=== PATIENT | male | born 2000 | race Caucasian/White ===

== ENCOUNTER 2020-06-04 23:19 | Emergency (ER) | payer MEDICAID, SELFPAY ==
[2020-06-04 23:22] VITALS: BP 152/78; PULSE 95; RESP 20; TEMP 36.4; O2SAT 98
[2020-06-04 23:28] VITALS: PULSE 95
--- NOTE | 2020-06-04 23:34 | ECG_ITS ---
Measurements Intervals [place] Rate: 92 P: 58 CT: 149 QRS: 83 QRSD: 118 T: 35 QT: 340 QTc: 422 Interpretive Statements SINUS RHYTHM POSSIBLE LEFT ATRIAL ENLARGEMENT RIGHT BUNDLE BRANCH BLOCK BASELINE ARTIFACT- I, II, III BORDERLINE ECG Electronically Signed On 06-05-2020 7:47:03 CDT by Ty Powers D.O.
--- NOTE | 2020-06-05 00:25 | ED.CHESTPAIN ---
HPI - Chest Pain General Chief Complaint: Chest Pain Stated Complaint: chest pain Source: patient and other (girlfriend) Mode of arrival: EMS History of Present Illness HPI narrative: 20 y.o. was smoking a cigarette, thinking about his responsibilities and lack of employment when he started feeling his heart racing and broke out in a sweat followed by discomfort in his left anterior chest, feeling like he was going to faint and being very anxious. The symptoms were so intense he thought he was going to . He saw black, then dropped to his knees. EMS was contacted and pt. transported to the E.. He has associated anterior neck discomfort made worse with deep inspiration. The total duration before arriving was approximately 25 - 30 minutes. Palpitations continued after arrival. He has a hx of recurrent episodes suddenly having palpitations, anxiety and panic starting 3 years ago. They have never been this intense, usually lasting just a few minutes. Seven days ago he fractured his left elbow which required ORIF. He wears a splint for this. Related Data Home Medications Medication Instructions Recorded Confirmed meloxicam 7.5 mg PO DAILY 06/04/20 06/04/20 tramadol 50 mg PO Q4H PRN 06/04/20 06/04/20 Allergies Allergy/AdvReac Type Severity Reaction Status Date / Time No Known Allergies Allergy Verified 06/04/20 23:32 Review of Systems Review of Systems: Narrative: Constitutional: Constitutional: Denies chills and Denies fever(s) ENT: Denies sore throat Respiratory: Respiratory: Reports no additional respiratory complaints Gastrointestinal: Gastrointestinal: Denies heartburn and Denies vomiting Musculoskeletal: Musculoskeletal: Denies back pain [facility] Past Medical History Medical History (Updated 06/05/20 @ 01:56 by Trey Duran MD) Fibromyalgia Kidney stones Migraine Social History Social History (Updated 06/05/20 @ 00:28 by Trey Duran MD) Smoking status: Current every day smoker Exam Const: Other: Laying at 70 degrees, cloth covering his upper face, mask on. (Pt stated the light bothered his eyes). Complaining of heart racing, telemetry shows normal sinus rhythm, rate <100. Respirations not labored or increased. HENMT: Head: normal to inspection Eyes: Other: no photophobia. Neck: Neck: no lymphadenopathy Chest: Chest palpation & inspection: normal inspection of the chest and tenderness (left medial chest, exacerbating his already present chest discomfort. ) Resp: Auscultation: clear to auscultation bilaterally Cardio: Rate: regular rate Rhythm: regular rhythm Heart sounds: no murmurs GI: Other: flat, soft and nontender : General: Yes no CVA tenderness Skin: General skin exam: normal color Other: warm and dry Neuro: General: patient oriented x3 Extrem: General: no pedal edema Psych: Affect: Anxious affect present Thought content: Yes Normal thought content present Course Course Emergency Course: Within 15 mnutes of arrival his symptoms were gone. He no longer had chest wall tenderness. Labs and other test results reviewed with patient. Dx. of panic attack discussed. Pt encouraged got get a PCP to discuss his anxiety, panic attacks and RBBB. Vital Signs Vital signs: Vital Signs Temperature 36.4 C L 06/04/20 23:22 Pulse Rate 95 06/04/20 23:22 Respiratory Rate 20 06/04/20 23:22 Blood Pressure 152/78 H 06/04/20 23:22 Pulse Oximetry 98 06/04/20 23:22 Temperature 36.6 C 06/05/20 01:45 Pulse Rate 89 06/05/20 01:45 Respiratory Rate 18 06/05/20 01:45 Blood Pressure 130/76 06/05/20 01:45 Pulse Oximetry 99 06/05/20 01:45 MDM - Chest Pain Differential Diagnosis Differential diagnosis: Likely costochondritis and other (ACS, GA, chest wall pain, GERD, panic attack) Lab Data Attestation: I reviewed the patient's lab results. Result diagrams: 06/05/20 00:49 06/05/20 00:49 Labs: Lab Results
[2020-06-05 00:33] VITALS: BP 141/70; PULSE 77; RESP 18; O2SAT 98
[2020-06-05 01:00] LABS: Basophils Absolute Auto 0.03 K/mm3 (0.00-0.10); Basophils Percent Auto 0.2 % (0.0-1.0); Eosinophils Absolute Auto 0.06 K/mm3 (0.02-0.50); Eosinophils Percent Auto 0.5 % (1.0-6.0); Hematocrit 42.5 % (40.0-54.0); Hemoglobin 14.1 g/dL (14.0-18.0); Immature Granulocyte Absolute 0.12 K/mm3 (0.00-0.00); Lymphocytes Absolute Auto 1.57 K/mm3 (1.10-4.50); Lymphocytes Percent Auto 12.7 % (18.0-42.0); Mean Corpuscular HGB Conc 33.2 g/dL (32.0-36.0); Mean Corpuscular Hemoglobin 30.5 pg (27.0-31.0); Mean Platelet Volume 9.8 fl (8.7-11.0); Monocytes Absolute Auto 1.14 K/mm3 (0.10-0.90); Monocytes Percent Auto 9.2 % (2.0-11.0); Neutrophils Absolute Auto 9.5 K/mm3 (1.7-7.2); Neutrophils Percent Auto 76.4 % (50.0-70.0); Platelet Count Result 248 K/mm3 (150-420); Red Blood Count 4.62 M/mm3 (4.70-6.10); Red Cell Distribution Width 12.7 % (11.6-14.4); White Blood Count 12.4 K/mm3 (4.8-10.8)
[2020-06-05 01:24] LABS: Amphetamine Screen Urine Negative (Negative); Barbiturate Screen Urine Negative (Negative); Benzodiazepines Screen Urine Negative (Negative); Cannabinoid Screen Urine Positive (Negative); Cocaine Screen Urine Negative (Negative); Methadone Screen Urine Negative (Negative); Opiate Screen Urine Positive (Negative); Phencyclidine Screen Urine Negative (Negative)
[2020-06-05 01:28] LABS: Appearance Urine Clear (Clear); Bilirubin Urine Negative (Negative); Blood Urine Negative (Negative); Color Urine Yellow (Yellow); Glucose Urine UA Negative (Negative); Ketones Urine Trace (Negative); Leukocyte Esterase Ur Negative LEU/UL (Negative); Nitrate Urine Negative (Negative); Protein Urine Negative (Negative)
[2020-06-05 01:30] LABS: Add Urine Microscopic? NO
[2020-06-05 01:33] LABS: Alanine Aminotransferase 37 U/L (16-63); Albumin Level 3.8 g/dL (3.4-5.0); Alkaline Phosphatase 63 U/L (46-116); Anion Gap 9.7 mmol/L (7-16); Aspartate Amino Transferase 25 U/L (15-37); Bilirubin,Total 0.2 mg/dL (0.00-1.00); Blood Urea Nitrogen 16 mg/dL (7-18); Carbon Dioxide 29 mmol/L (21-32); Chloride 104 mmol/L (98-108); Estimated CRCL calculation 106 ml/min; Estimated Glomerular Filt Rate > 60; Glucose 105 mg/dL (70-99); Osmolality Calculated 289 mOsm/kg (285-295); Potassium 3.7 mmol/L (3.5-5.1); Sodium 139 mmol/L (136-145); Total Protein 7.3 g/dL (6.4-8.2)
[2020-06-05 01:34] LABS: Troponin I < 0.02 ng/mL (0.00-0.056)
[2020-06-05 01:45] VITALS: BP 130/76; PULSE 89; RESP 18; TEMP 36.6; O2SAT 99
== END 2020-06-05 02:00 | disposition home or self-care (01) ==
PROVIDERS: Emergency Provider Family Medicine
DX: F41.0 Panic disorder [episodic paroxysmal anxiety] (principal); I45.10 Unspecified right bundle-branch block
CPT/HCPCS: 36415; 80053; 80307; 81003; 84484; 85025; 93005; 99283; 99284

== ENCOUNTER 2020-06-25 21:05 | Emergency (ER) | payer MEDICAID, SELFPAY ==
--- NOTE | ~2020-06-25 | XR_ITS ---
EXAMINATION: XR chest 2V DATE: 06/25/2020 21:57 INDICATION: Chest pain TECHNIQUE: PA and lateral views of the chest were obtained. COMPARISON: None FINDINGS: The lungs are clear with no focal airspace opacities, pulmonary edema, pleural effusion or pneumothor ax. The cardiomediastinal silhouette is normal. Visualized bones and soft tissues are unremarkable. IMPRESSION: 1. No acute cardiopulmonary disease. Reviewed, dictated and finalized at location A.
[2020-06-25 21:07] VITALS: BP 138/82; PULSE 94; RESP 20; TEMP 36.6; O2SAT 98
--- NOTE | 2020-06-25 21:10 | ECG_ITS ---
Measurements Intervals [place] Rate: 93 P: 42 OR: 146 QRS: 54 QRSD: 117 T: 18 QT: 335 QTc: 418 Interpretive Statements SINUS RHYTHM INCOMPLETE RIGHT BUNDLE BRANCH BLOCK BASELINE ARTIFACT- I, III, AVL, AVF BORDERLINE ECG Electronically Signed On 06-26-2020 7:09:50 CDT by Ty Powers D.O.
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
[2020-06-25 21:26] VITALS: PULSE 94
[2020-06-25] MEDS: SODIUM CHLORIDE 0.9% IV 1,000 ML 999 ML IV CONT (21:33)
[2020-06-25 21:36] LABS: Basophils Absolute Auto 0.02 K/mm3 (0.00-0.10); Basophils Percent Auto 0.2 % (0.0-1.0); Eosinophils Absolute Auto 0.12 K/mm3 (0.02-0.50); Eosinophils Percent Auto 1.2 % (1.0-6.0); Hematocrit 42.8 % (40.0-54.0); Hemoglobin 14.3 g/dL (14.0-18.0); Immature Granulocyte Absolute 0.03 K/mm3 (0.00-0.00); Immature Granulocyte Percent A 0.3 % (0.0-0.0); Lymphocytes Absolute Auto 3.01 K/mm3 (1.10-4.50); Lymphocytes Percent Auto 29.3 % (18.0-42.0); Mean Corpuscular HGB Conc 33.4 g/dL (32.0-36.0); Mean Corpuscular Hemoglobin 30.2 pg (27.0-31.0); Mean Corpuscular Volume 90.5 fL (78.0-102.0); Monocytes Absolute Auto 0.92 K/mm3 (0.10-0.90); Monocytes Percent Auto 8.9 % (2.0-11.0); Neutrophils Absolute Auto 6.2 K/mm3 (1.7-7.2); Neutrophils Percent Auto 60.1 % (50.0-70.0); Platelet Count Result 229 K/mm3 (150-420); Red Blood Count 4.73 M/mm3 (4.70-6.10); Red Cell Distribution Width 12.7 % (11.6-14.4); White Blood Count 10.3 K/mm3 (4.8-10.8)
[2020-06-25 21:53] LABS: D Dimer 0.19 mg/L (0.19-0.50); Partial Thromboplastin Time 25.2 SEC (22.3-31.6); Prothrombin Time 10.7 Seconds (9.64-11.0)
[2020-06-25 21:54] LABS: Alanine Aminotransferase 41 U/L (16-63); Alkaline Phosphatase 78 U/L (46-116); Anion Gap 12 mmol/L (8-16); Aspartate Amino Transferase 20 U/L (15-37); Bilirubin,Total 0.3 mg/dL (0.00-1.00); Blood Urea Nitrogen 13 mg/dL (7-18); Calcium 9.4 mg/dL (8.5-10.1); Carbon Dioxide 25 mmol/L (21-32); Chloride 101 mmol/L (98-108); Estimated CRCL calculation 112 ml/min; Estimated Glomerular Filt Rate > 60; Glucose 103 mg/dL (70-99); Osmolality Calculated 286 mOsm/kg (285-295); Potassium 3.5 mmol/L (3.5-5.1); Sodium 138 mmol/L (136-145); Total Protein 7.5 g/dL (6.4-8.2)
[2020-06-25 21:55] LABS: Troponin I < 0.02 ng/mL (0.00-0.056)
[2020-06-25 21:57] LABS: Add Urine Microscopic? NO; Appearance Urine Clear (Clear); Bilirubin Urine Negative (Negative); Blood Urine Negative (Negative); Color Urine Yellow (Yellow); Glucose Urine UA Negative (Negative); Ketones Urine Negative (Negative); Leukocyte Esterase Ur Negative LEU/UL (Negative); Nitrate Urine Negative (Negative); Protein Urine Negative (Negative); Specific Grav Ur 1.025 (1.010-1.020); Urobilinogen Urine 0.2 mg/dL (0.2-1.0); pH Urine 6.5 (5.0-8.0)
[2020-06-25 21:59] LABS: Amphetamine Screen Urine Negative (Negative); Barbiturate Screen Urine Negative (Negative); Benzodiazepines Screen Urine Negative (Negative); Cannabinoid Screen Urine Positive (Negative); Cocaine Screen Urine Negative (Negative); Methadone Screen Urine Negative (Negative); Opiate Screen Urine Negative (Negative); Phencyclidine Screen Urine Negative (Negative)
[2020-06-25 22:34] VITALS: BP 137/77; PULSE 84; RESP 20; TEMP 37.1; O2SAT 98
== END 2020-06-25 22:37 | disposition home or self-care (01) ==
PROVIDERS: Emergency Provider Emergency Medicine
DX: R07.9 Chest pain, unspecified (principal); R00.0 Tachycardia, unspecified
CPT/HCPCS: 36415; 71046; 80053; 80307; 81003; 84484; 85025; 85380; 85610; 85730; 93005; 96360; 99284; J7030

== ENCOUNTER 2020-07-12 09:06 | Emergency (ER) | payer MEDICAID, SELFPAY ==
--- NOTE | 2020-07-12 09:22 | ECG_ITS ---
Measurements Intervals [place] Rate: 74 P: 59 OR: 149 QRS: 62 QRSD: 116 T: 38 QT: 373 QTc: 414 Interpretive Statements SINUS RHYTHM WITH SINUS ARRHYTHMIA INCOMPLETE RIGHT BUNDLE BRANCH BLOCK ST ELEVATION CONSISTENT WITH INJURY, PERICARDITIS, OR EARLY REPOLARIZATION BASELINE ARTIFACT- III, AVF ABNORMAL ECG Electronically Signed On 07-12-2020 10:16:35 CDT by Ty Powers D.O.
--- NOTE | 2020-07-12 09:34 | ED.CHESTPAIN ---
HPI - Chest Pain General Chief Complaint: Chest Pain Stated Complaint: Chest Pain Time Seen by Provider: 07/12/20 09:23 Source: patient Mode of arrival: ambulatory Limitations: no limitations History of Present Illness HPI narrative: This patient is a 20 year old male who presents for evaluation of left sternal chest pain. He states he developed this pain 30 minutes ago. He describes pain has vague numb pain. He is unable to describe if pain radiates. He has been having this pain intermittently for 2 months and he has had multiple ER visits. He has not taken anything for his pain today. He denies nausea, vomiting, fever or cough. He has associated anxiety and numbness all over. Related Data Allergies Allergy/AdvReac Type Severity Reaction Status Date / Time No Known Allergies Allergy Verified 06/04/20 23:32 Review of Systems Review of Systems: All systems reviewed & are unremarkable except as noted in HPI and below Constitutional: Constitutional: Denies chills and Denies fever(s) Cardiovascular: Cardiovascular: Reports chest pain Respiratory: Respiratory: Denies cough and Reports dyspnea Gastrointestinal: Gastrointestinal: Denies abdominal pain, Denies nausea and Denies vomiting Neurologic: Reports numbness (all over) Psychiatric: Psychiatric: Reports anxiety PMFSH Past Medical History Medical History Fibromyalgia Kidney stones Migraine Surgical History Surgical History (Updated 06/25/20 @ 21:38 by Trey Miller MD) H/O elbow surgery left Social History Social History (Updated 07/12/20 @ 09:37 by Merly Hawkins MD) Smoking packs per day: 0.5 Smoking cigarettes per day: 10.0 Smoking status: Current every day smoker Alcohol intake: current Substance use: current Substance use type: marijuana Gender identity (if verbalized by the patient): Male Exam Narrative: Exam Narrative: GENERAL: Well-appearing, well-nourished, and in no acute distress. HEAD: Normocephalic, atraumatic EYES: PERRLA and EOMI, conjunctiva clear without discharge THROAT:Mucous membranes moist, Oropharynx normal without erythema, exudate, peritonsillar swelling or fluctuance NECK: Supple, without lymphadenopathy or mass RESPIRATORY: No respiratory distress, Airway patent, Respirations non-labored, Clear to auscultation without rales, rhonchi or wheeze HEART: Regular rate and rhythm. No murmur heard. Normal peripheral pulses. ABDOMEN: Soft, nontender, nondistended, normal active bowel sounds. No masses. No rebound or guarding, No organomegaly. EXTREMITIES: No edema, normal strength with full range of motion. SKIN: Warm, dry, normal color without rash NEURO: Alert and oriented x3. CN 2-12 grossly intact. No focal deficits. PSYCH: Normal mood , anxiety Course Vital Signs Vital signs: Vital Signs Pulse Rate 69 07/12/20 13:23 Respiratory Rate 13 07/12/20 13:23 Blood Pressure 129/91 H 07/12/20 13:23 Pulse Oximetry 100 07/12/20 13:23 Pulse Rate 69 07/12/20 13:23 Respiratory Rate 13 07/12/20 13:23 Blood Pressure 129/91 H 07/12/20 13:23 Pulse Oximetry 100 07/12/20 13:23 MDM - Chest Pain Lab Data Attestation: I reviewed the patient's lab results. Result diagrams: 07/12/20 09:49 07/12/20 09:49 Labs: Lab Results 07/12/20 07/12/20 07/12/20 Range/Units 09:49 09:49 09:49 WBC 8.9 (4.5-10.0) K/mm3 RBC 5.20 (4.6-6.20) M/mm3 Hgb 15.5 (14.0-18.0) g/dL Hct 45.8 (42.0-52.0) % MCV 88.1 (80-100) fl MCH 29.8 (26-34) pg MCHC 33.8 (32-36) g/dl RDW 12.5 (11.5-14.5) % Plt Count 256 (150-375) k/mm3 MPV 9.9 (7.4-10.4) fl Immature Gran % (Auto) 0.2 (0-0.5) % Neut % (Auto) 47.2 (45.5-73.1) % Lymph % (Auto) 39.8 (18.3-44.2) % [place] % (Auto) 10.3 H (2.6-8.5) % Eos % (Auto) 2.3 (0-4.4) % Baso % (Auto) 0.2 (0.2-
[2020-07-12] MEDS: ASPIRIN 81 MG CHEWABLE TABLET 324 MG PO (09:54)
[2020-07-12 09:56] LABS: Basophils Percent Auto 0.2 % (0.2-1.2); Eosinophils Absolute Auto 0.2 K/mm3 (0-0.3); Eosinophils Percent Auto 2.3 % (0-4.4); Hematocrit 45.8 % (42.0-52.0); Hemoglobin 15.5 g/dL (14.0-18.0); Immature Granulocyte Absolute 0.02 K/mm3 (0.00-0.031); Immature Granulocyte Percent A 0.2 % (0-0.5); Lymphocytes Absolute Auto 3.52 K/mm3 (0.9-3.2); Lymphocytes Percent Auto 39.8 % (18.3-44.2); Mean Corpuscular HGB Conc 33.8 g/dl (32-36); Mean Corpuscular Hemoglobin 29.8 pg (26-34); Mean Corpuscular Volume 88.1 fl (80-100); Mean Platelet Volume 9.9 fl (7.4-10.4); Monocytes Absolute Auto 0.9 K/mm3 (0.1-0.6); Monocytes Percent Auto 10.3 % (2.6-8.5); Neutrophils Absolute Auto 4.2 K/mm3 (1.3-6.7); Neutrophils Percent Auto 47.2 % (45.5-73.1); Platelet Count Result 256 k/mm3 (150-375); Red Cell Distribution Width 12.5 % (11.5-14.5); White Blood Count 8.9 K/mm3 (4.5-10.0)
[2020-07-12] MEDS: KETOROLAC 30 MG/ML VIAL (*BKC) IV PUSH (09:58)
[2020-07-12 10:08] LABS: Anion Gap 9 mmol/L (8-16); Blood Urea Nitrogen 16 mg/dL (9-20); Calcium 9.7 mg/dL (8.4-10.2); Carbon Dioxide 25 mmol/L (22-30); Chloride 101 mmol/L (98-107); Estimated Glomerular Filt Rate > 60; Glucose 105 mg/dL (75-110); Potassium 3.7 mmol/L (3.4-5.0); Prothrombin Time 13.2 Seconds (11.1-14.7); Sodium 135 mmol/L (137-145)
[2020-07-12 10:19] LABS: Troponin I < 0.012 ng/mL (0.000-0.034)
[2020-07-12 13:07] LABS: Troponin I < 0.012 ng/mL (0.000-0.034)
[2020-07-12 13:23] VITALS: BP 129/91; PULSE 69; RESP 13; O2SAT 100
== END 2020-07-12 13:24 | disposition home or self-care (01) ==
PROVIDERS: Emergency Provider General Practice
DX: R07.89 Other chest pain (principal); I45.10 Unspecified right bundle-branch block; M79.7 Fibromyalgia
CPT/HCPCS: 36415; 80048; 84484; 85025; 85610; 85730; 93005; 96374; 96375; 99284; A9270; J1885; J2060

== ENCOUNTER 2020-07-18 07:30 | Emergency (ER) | payer OTHER, SELFPAY ==
--- NOTE | ~2020-07-18 | XR_ITS ---
EXAMINATION: XR chest 2V DATE: 07/18/2020 08:50 INDICATION: Chest pain. Shortness of breath. TECHNIQUE: Frontal and lateral views of the chest were obtained. COMPARISON: Chest 2 views 06/25/2020 FINDINGS: The chest demonstrates clear lungs without pneumonia, pleural effusion, or pneumothorax. Th e heart size is normal. IMPRESSION: 1. No acute cardiopulmonary disease. Reviewed, dictated and finalized at location A.
--- NOTE | 2020-07-18 07:39 | ECG_ITS ---
Measurements Intervals [place] Rate: 96 P: 59 [place]: 144 QRS: 118 QRSD: 120 T: 24 QT: 340 QTc: 430 Interpretive Statements SINUS RHYTHM RIGHT BUNDLE BRANCH BLOCK LEFT POSTERIOR FASCICULAR BLOCK ABNORMAL ECG Electronically Signed On 07-18-2020 7:55:58 CDT by Ty Powers D.O.
[2020-07-18 07:40] VITALS: BP 126/73; PULSE 94; RESP 16; TEMP 36.7; O2SAT 96
[2020-07-18 08:17] LABS: Hematocrit 44.8 % (40.0-54.0); Hemoglobin 14.9 g/dL (14.0-18.0); Mean Corpuscular HGB Conc 33.3 g/dL (32.0-36.0); Mean Corpuscular Hemoglobin 30.2 pg (27.0-31.0); Mean Corpuscular Volume 90.7 fL (78.0-102.0); Mean Platelet Volume 9.8 fl (8.7-11.0); Platelet Count Result 259 K/mm3 (150-420); Red Blood Count 4.94 M/mm3 (4.70-6.10); Red Cell Distribution Width 12.2 % (11.6-14.4); White Blood Count 9.2 K/mm3 (4.8-10.8)
--- NOTE | 2020-07-18 08:17 | ED.CHESTPAIN ---
HPI - Chest Pain General Chief Complaint: Chest Pain Stated Complaint: chest pain Source: patient Mode of arrival: ambulatory Limitations: no limitations History of Present Illness HPI narrative: Pt started having CP about a month ago it comes and goes every couple of days. He has some mild SOB, and nausea. He does have anxiety. MD complaint: chest pain Timing of current episode: episodic (lasts 15 or so min, occurse very frequently over last month, [place] since he had his elbow surgery) Prior episodes: Yes Onset: during rest Pain location: left chest Pain radiation: left shoulder Severity: moderate Quality: other (numbness) Relieving factors: nothing Exacerbating factors: nothing Context: recent surgery (left elbow surg 1 month ago) Associated symptoms: nausea Treatment prior to arrival: none Risk Factors Coronary artery disease risk factors: smoking history Thoracic aortic dissection risk factors: none Pulmonary embolism risk factors: recent surgery Related Data Allergies Allergy/AdvReac Type Severity Reaction Status Date / Time No Known Allergies Allergy Verified 07/18/20 07:40 Review of Systems Review of Systems: All systems reviewed & are unremarkable except as noted in HPI and below Constitutional: Constitutional: Reports no additional constitutional complaints Eyes: Eyes: Reports no additional eye complaints ENT: Reports system reviewed and no additional complaints, except as documented Cardiovascular: Cardiovascular: Reports no additional cardiovascular complaints Respiratory: Respiratory: Reports no additional respiratory complaints Gastrointestinal: Gastrointestinal: Reports as per HPI, Reports no additional gastrointestinal complaints and Reports nausea Genitourinary: Genitourinary: Reports no additional male genitourinary complaints Musculoskeletal: Musculoskeletal: Reports no additional musculoskeletal complaints Integumentary/Breasts: Skin/Breast: Reports system reviewed and no additional complaints, except as docu Neurologic: Reports system reviewed and no additional complaints, except as documented Psychiatric: Psychiatric: Reports no additional psychiatric complaints Endocrine: Endocrine: Reports no additional endocrine complaints Hematologic/Lymphatic: Hematologic/Lymphatic: Reports no additional hematologic/lymphatic complaints Allergic/Immunologic: Allergic/Immunologic: Reports no additional allergic/immunologic complaints PMFSH Past Medical History Medical History Fibromyalgia Kidney stones Migraine Surgical History Surgical History H/O elbow surgery left Social History Social History Smoking packs per day: 0.5 Smoking cigarettes per day: 10.0 Smoking status: Current every day smoker Alcohol intake: current Substance use: current Substance use type: marijuana Gender identity (if verbalized by the patient): Male Exam Const: General: no acute distress HENMT: Head: normal to inspection Eyes: Pupils: Equal, round and reactive pupils present Neck: Neck: normal visual inspection Chest: Chest palpation & inspection: normal inspection of the chest Resp: Effort & Inspection: normal respiratory effort Cardio: Rate: regular rate Rhythm: regular rhythm GI: Inspection: distended Auscultation: normal bowel sounds Back/Spine/Pelvis: Back: no CVA tenderness Skin: General skin exam: normal color Neuro: General: patient oriented x3 Extrem: General: normal to inspection Psych: Mental Status: mental status grossly normal Affect: Anxious affect present Thought content: Yes Normal thought content present Course Vital Signs Vital signs: Vital Signs Temperature 36.7 C 07/18/20 07:40 Pulse Rate 94 07/18/20 07:40 Respiratory Rate 16 07/18/20 07:40 Blood Pressure 126/
[2020-07-18 08:28] LABS: D Dimer 0.19 mg/L (0.19-0.50)
[2020-07-18 08:29] LABS: Alanine Aminotransferase 30 U/L (16-63); Albumin Level 4.2 g/dL (3.4-5.0); Alkaline Phosphatase 86 U/L (46-116); Anion Gap 8 mmol/L (8-16); Aspartate Amino Transferase 16 U/L (15-37); Bilirubin,Total 0.3 mg/dL (0.00-1.00); Blood Urea Nitrogen 13 mg/dL (7-18); Calcium 9.4 mg/dL (8.5-10.1); Carbon Dioxide 29 mmol/L (21-32); Chloride 103 mmol/L (98-108); Estimated CRCL calculation 110 ml/min; Estimated Glomerular Filt Rate > 60; Glucose 122 mg/dL (70-99); Osmolality Calculated 291 mOsm/kg (285-295); Potassium 3.7 mmol/L (3.5-5.1); Sodium 140 mmol/L (136-145); Total Protein 7.7 g/dL (6.4-8.2)
[2020-07-18 08:30] LABS: Troponin I < 0.02 ng/mL (0.00-0.056)
[2020-07-18 09:22] VITALS: BP 131/67; PULSE 78; RESP 16; TEMP 36.6; O2SAT 96
== END 2020-07-18 09:25 | disposition home or self-care (01) ==
PROVIDERS: Emergency Provider Emergency Medicine
DX: M79.7 Fibromyalgia (principal); F41.9 Anxiety disorder, unspecified; F17.200 Nicotine dependence, unspecified, uncomplicated; Z87.442 Personal history of urinary calculi
CPT/HCPCS: 36415; 71046; 80053; 84484; 85027; 85380; 93005; 96372; 99284; J2060

== ENCOUNTER 2020-07-21 05:30 | Emergency (ER) | payer OTHER, SELFPAY ==
[2020-07-21 05:30] VITALS: BP 157/75; PULSE 100; PULSE 76; RESP 20; TEMP 36.8; O2SAT 100
--- NOTE | 2020-07-21 05:57 | PC.NURSE ---
ERP in to evaluate pt., Pt. seen here 2 days ago c same type sxs and had all negative workup. ERP discussed POC c pt. and f/u plan.
[2020-07-21 05:58] VITALS: BP 143/78; PULSE 85; RESP 20; O2SAT 99
--- NOTE | 2020-07-21 06:00 | ED.ANXIETY ---
HPI - Anxiety General Chief Complaint: Anxiety Stated Complaint: Chest Pain Source: patient and family History of Present Illness HPI narrative: this is a 20-year-old male presents with some chest pain shortness of breath numbness and tingling around his mouth and his fingers and was hyperventilating started earlier this morning and woke him up. The patient had a fall with a fracture with rods and pins in his elbow. Patient has been thinking about this event has a follow-up appointment with his primary care physician today. Was recently seen 2 days ago for a similar event and had a EKG performed, and laboratory work performed as well all within normal limits at that time. Patient smokes marijuana, no family history of heart disease and no tobacco history. MD complaint: anxiety, heart racing and shortness of breath Onset (ago): hour(s) Symptoms: chest pain and extremity numbness/tingling Severity: mild Quality: constant Place: home History of similar episodes: Yes Provoking factors: emotional stress Relieving factors: medication, deep breaths and rest Exacerbating factors: thinking about event Associated symptoms: chest pain and shortness of breath Related Data Home Medications Medication Instructions Recorded Confirmed No Home Medications 07/21/20 07/21/20 Allergies Allergy/AdvReac Type Severity Reaction Status Date / Time No Known Allergies Allergy Verified 07/18/20 07:40 Review of Systems Review of Systems: All systems reviewed & are unremarkable except as noted in HPI and below PMFSH Past Medical History Medical History Fibromyalgia Kidney stones Migraine Surgical History Surgical History H/O elbow surgery left Social History Social History Smoking packs per day: 0.5 Smoking cigarettes per day: 10.0 Smoking status: Current every day smoker Alcohol intake: current Substance use: current Substance use type: marijuana Gender identity (if verbalized by the patient): Male Exam Const: General: no acute distress and alert Orientation/consciousness: patient oriented x3 HENMT: Head: normal to inspection Eyes: Conjunctivae: conjunctivae normal Pupils: Equal, round and reactive pupils present EOM: EOMs intact bilaterally Neck: Neck: normal visual inspection, no lymphadenopathy and no meningeal signs Chest: Chest palpation & inspection: normal inspection of the chest Resp: Effort & Inspection: normal respiratory effort Auscultation: clear to auscultation bilaterally Cardio: Rate: regular rate Rhythm: regular rhythm : Male General Exam: Yes normal external exam Testes: Testes normal Back/Spine/Pelvis: Back: no CVA tenderness Skin: General skin exam: normal color Rashes: no rashes Neuro: General: patient oriented x3, moves all extremities, no meningeal signs and no focal motor deficits Extrem: General: normal to inspection and no pedal edema Psych: Appearance: grossly normal Mental Status: mental status grossly normal Course Course Emergency Course: Patient received p.o. Xanax with some moderate symptom improvement. Vital Signs Vital signs: Vital Signs Temperature 36.8 C 07/21/20 05:30 Pulse Rate 76 07/21/20 05:30 Respiratory Rate 20 07/21/20 05:30 Blood Pressure 157/75 H 07/21/20 05:30 Pulse Oximetry 100 07/21/20 05:30 Temperature 36.8 C 07/21/20 05:30 Pulse Rate 85 07/21/20 05:58 Respiratory Rate 20 07/21/20 05:58 Blood Pressure 143/78 H 07/21/20 05:58 Pulse Oximetry 99 07/21/20 05:58 Discharge Plan Discharge Clinical Impression: Acute anxiety Patient Disposition: Home, Self-Care Condition: Stable Instructions: Antibiotic Form, Anxiety (ED) Additional Instructions: Keep follow-up appointment with primary care physician as scheduled and
[2020-07-21 06:06] VITALS: BP 142/75; PULSE 75; RESP 18; TEMP 36.6; O2SAT 99
[2020-07-21] MEDS: ALPRAZolam 0.5 MG TABLET PO (06:06)
== END 2020-07-21 06:20 | disposition home or self-care (01) ==
PROVIDERS: Emergency Provider Emergency Medicine; PCP Family Medicine
DX: F41.9 Anxiety disorder, unspecified (principal)
CPT/HCPCS: 99282; 99283; A9270

== ENCOUNTER 2020-08-07 15:28 | Emergency (ER) | payer OTHER, SELFPAY ==
[2020-08-07 15:30] VITALS: BP 138/84; PULSE 103; RESP 16; TEMP 36.8; O2SAT 97
--- NOTE | 2020-08-07 17:04 | ED.WOUNDLAC ---
HPI - Wound/Laceration General Chief Complaint: Wound/Laceration Stated Complaint: cut finger Source: patient Mode of arrival: ambulatory Limitations: no limitations History of Present Illness HPI narrative: patient presents with a laceration to his right palmar surface of his 5th finger after he was lifting a heavy water heater which slipped causing a laceration on the palmar surface of his right 5th finger, initially bleeding currently bleeding is well controlled has good range of motion in his finger with no numbness or tingling. Patient is up-to-date with his tetanus. Onset (ago): hour(s) Extremity Location: Right: hand ( right 5th finger palmar surface laceration) Place: work Patient tetanus UTD: Yes Context: accidental Associated symptoms: none Treatments prior to arrival: bandage Related Data Allergies Allergy/AdvReac Type Severity Reaction Status Date / Time No Known Allergies Allergy Verified 07/26/20 08:37 Review of Systems Review of Systems: All systems reviewed & are unremarkable except as noted in HPI and below PMFSH Past Medical History Medical History Kidney stones Migraine Tobacco abuse Surgical History Surgical History H/O elbow surgery left Social History Social History Smoking status: Former smoker Smokeless tobacco user: chewing tobacco Alcohol intake: current Substance use: current Substance use type: marijuana Gender identity (if verbalized by the patient): Male Exam Const: General: healthy appearing, no acute distress and alert Orientation/consciousness: patient oriented x3 HENMT: Head: normal to inspection Eyes: Conjunctivae: conjunctivae normal Pupils: Equal, round and reactive pupils present Direct Ophthalmoscopy: no photophobia Neck: Neck: normal visual inspection and no lymphadenopathy Chest: Chest palpation & inspection: normal inspection of the chest Cardio: Rate: regular rate Rhythm: regular rhythm GI: GI Palp: Yes Soft to palpation Auscultation: normal bowel sounds Back/Spine/Pelvis: Back: no CVA tenderness Skin: General skin exam: normal color Extrem: General: normal to inspection and no pedal edema Other: Laceration apprise 2cm in length palmar surface of his right 5th finger Psych: Mental Status: mental status grossly normal Course Course Emergency Course: laceration repair right 5th finger palmar surface patient tolerated procedure well. Vital Signs Vital signs: Vital Signs Temperature 36.8 C 08/07/20 15:30 Pulse Rate 103 H 08/07/20 15:30 Respiratory Rate 16 08/07/20 15:30 Blood Pressure 138/84 08/07/20 15:30 Pulse Oximetry 97 08/07/20 15:30 Temperature 36.8 C 08/07/20 15:30 Pulse Rate 103 H 08/07/20 15:30 Respiratory Rate 16 08/07/20 15:30 Blood Pressure 138/84 08/07/20 15:30 Pulse Oximetry 97 08/07/20 15:30 Procedures Laceration Laceration 1: Date: 08/07/20 Time: 17:07 Site: upper extremity Side (If applicable): right Size (cm): 2 Description: linear and flap Depth: simple, single layer Local Anesthetic: lidocaine 1% Amount of anesthesia used (mL): 5 Pre-repair: wound explored and irrigated ====== Skin Level ====== Skin layer closed with: vicryl Size (cm): 4-0 Number of sutures: 5 ====== Subcutaneous Layer ====== ====== Muscle Layer ====== ====== Tendon Layer ====== Critical Care Time Critical Care Time Critical Care Time: No Discharge Plan Discharge Clinical Impression: Laceration Patient Disposition: Home, Self-Care Condition: Stable Instructions: Antibiotic Form, Laceration (ED), Care For Your Stitches (ED) Additional Instructions: follow-up with primary care physician for suture removal i
== END 2020-08-07 17:18 | disposition home or self-care (01) ==
PROVIDERS: Emergency Provider Emergency Medicine; PCP Family Medicine
DX: S61.216A Laceration without foreign body of right little finger without damage to nail, initial encounter (principal); W45.8XXA Other foreign body or object entering through skin, initial encounter
CPT/HCPCS: 12001; 99282